=== PATIENT | female | born 1970 | race Caucasian/White ===

== ENCOUNTER → 2016-06-21 | Outpatient (CLI) | payer OTHER ==
--- NOTE | 2016-06-21 10:44 | REPMRS ---
Patient History The patient states she had a clinical breast exam [id number] Patient is postmenopausal. No known family history of cancer. Taking estrogen for 3 years. Digital Woman Screen Mammo: June 21, 2016 - Exam #: [id number] Bilateral CC and MLO view(s) were taken. Technologist: Heidi Sanchez, Technologist Prior study comparison: June 24, 2015, digital woman screen mammo performed at [facility] to [facility]. July 26, 2013, digital woman screen mammo performed at [facility] to [facility]. June 17, 2009, bilateral digital mammo screening bilat performed at [facility] to [facility]. FINDINGS: There are scattered fibroglandular densities. There has been no change in the appearance of the mammogram from the prior studies. There is a mild amount of scattered fibroglandular density which is fairly symmetric. There is no interval development of dominant mass, architectural distortion, or clustered microcalcification suggestive of malignancy. ASSESSMENT: BI-RADS/ACR category 1 mammogram. Negative. Recommendation Routine screening mammogram in 1 year (for women over age 40). This mammogram was interpreted with the aid of an FDA-approved computer-aided dectection system. Electronically Signed By: Germán Hollis MD 06/21/16 0851
== END ==
LOC: M WHC 06:50
PROVIDERS: ATTEND Nurse Practitioner Adult Health
DX: Z12.31 Encounter for screening mammogram for malignant neoplasm of breast (principal); Z78.0 Asymptomatic menopausal state; Z92.23 Personal history of estrogen therapy

== ENCOUNTER → 2016-06-27 | Outpatient (REF) | payer OTHER | LOC: M SFHCPLAZ 11:34 | PROVIDERS: ATTEND Nurse Practitioner Adult Health | DX: J02.8 Acute pharyngitis due to other specified organisms (principal) ==

== ENCOUNTER 2016-06-30 12:22 | Emergency (ER) | payer OTHER ==
[~2016-06-30] VITALS: Ht 157.5 cm; Wt 81.6 kg
[2016-06-30 13:29] LABS: BASO % 0.8 % (0.0-1.0); EOS # 0.1 K/mm3 (0.0-0.50); EOS % 1.5 % (0.0-3.0); LARGE UNSTAINED CELL # 0.1 K/mm3 (0.0-0.4); LARGE UNSTAINED CELL % 2.3 % (0.0-4.0); LYMPH # 1.7 K/mm3 (1.5-4.5); LYMPH % 31.4 % (24.0-44.0); MEAN CORPUSCULAR HEMOGLOBIN 32.3 pg (27.0-33.0); MEAN CORPUSCULAR HGB CONC 34.8 g/dl (32.0-36.5); MEAN CORPUSCULAR VOLUME 92.8 fl (80.0-96.0); MONO # 0.3 K/mm3 (0.0-0.8); MONO % 6.3 % (0.0-5.0); NEUTROPHILS # 3.1 K/mm3 (1.8-7.7); NEUTROPHILS % 57.7 % (36.0-66.0); PLATELET COUNT, AUTOMATED 305 k/mm3 (150-450); RED CELL DISTRIBUTION WIDTH 12.2 % (11.5-14.5); WHITE BLOOD COUNT 5.3 K/mm3 (4.0-10.0)
[2016-06-30] MEDS ORDERED: VIVE0.02 TD (13:36)
[2016-06-30] MEDS ORDERED: OSEL75CA PO (13:36)
[2016-06-30] MEDS ORDERED: SING10TA32 PO (13:36)
[2016-06-30] MEDS ORDERED: AMOX500C PO (13:36)
[2016-06-30] MEDS ORDERED: BENA25CA4 PO (13:36)
[2016-06-30] MEDS ORDERED: ALLE180T33 PO (13:36)
[2016-06-30] MEDS ORDERED: VITA200016 PO (13:36)
[2016-06-30 13:40] LABS: ABG BASE EXCESS 0.9 (-2.0-2.0); ABG HCO3 18.1 MEQ/L (22.0-26.0); ABG PARTIAL PRESSURE O2 155.8 mmHg (75.0-100.0); ABG STANDARD HCO3 25.4 MEQ/L (22.0-26.0); ABG TOTAL CO2 18.6 MEQ/L (22.0-29.0)
[2016-06-30 13:42] LABS: CONTROL LINE HCG INT CTR LINE PRESENT
[2016-06-30 13:44] LABS: ABG PARTIAL PRESSURE CO2 16.6 mmHg (35.0-45.0); ABG pH (ARTERIAL) 7.655 UNITS (7.350-7.450)
[2016-06-30 13:52] LABS: ALBUMIN 4.5 GM/DL (3.2-5.2); ALBUMIN/GLOBULIN RATIO 1.15 (1.00-1.93); ALKALINE PHOSPHATASE 80 U/L (45-117); ALT/SGPT 33 U/L (12-78); ANION GAP 17 MEQ/L (8-16); AST/SGOT 22 U/L (15-37); BILIRUBIN,DIRECT 0.1 MG/DL (0.0-0.2); BILIRUBIN,TOTAL 0.7 MG/DL (0.2-1.0); BLOOD UREA NITROGEN 14 MG/DL (7-18); CALCIUM LEVEL 9.8 MG/DL (8.5-10.1); CARBON DIOXIDE LEVEL 20 MEQ/L (21-32); CHLORIDE LEVEL 105 MEQ/L (98-107); CREATININE FOR GFR 1.09 MG/DL (0.55-1.02); GLOMERULAR FILTRATION RATE 58.1 (>58); GLUCOSE, FASTING 96 MG/DL (70-105); POTASSIUM SERUM 3.2 MEQ/L (3.5-5.1); SODIUM LEVEL 142 MEQ/L (136-145); TOTAL PROTEIN 8.4 GM/DL (6.4-8.2)
--- NOTE | 2016-06-30 13:59 | ECGEPIP ---
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
[2016-06-30] MEDS ORDERED: ISOVUE-370 76% 100ML VIAL (Q9967) As Ordered ONE (14:12)
--- NOTE | 2016-06-30 14:46 | REP ---
CHEST, PORTABLE: AP portable view of the chest is performed and compared to prior study of 04/08/2015. There is no acute infiltrate. There is mild bibasilar fibroatelectatic change. Heart and mediastinum are unremarkable in appearance. The visualized osseous structures appear intact. IMPRESSION: No acute pulmonary disease. Signed by Alfred Yoder MD 06/30/2016 04:44 P
--- NOTE | 2016-06-30 15:03 | REP ---
CT PULMONARY ANGIOGRAM: WITH IV CONTRAST. HISTORY: Shortness of breath. COMPARISON STUDIES: Comparison chest x-ray is from earlier this date. CONTRAST DOSE: 75 mL of Isovue-[address] TECHNIQUE: Helical scanning is acquired and overlapping 1.5 mm and contiguous 3 mm axial images are reformatted. In addition, a 3D work station is deployed to generate thick slab maximum intensity projection images in sagittal and coronal imaging projections. CT PULMONARY ANGIOGRAPHIC FINDINGS: There is good opacification of the pulmonary arterial tree. There is no CT evidence of pulmonary embolism. The thoracic aorta enhances homogeneously and is normal in course and caliber. 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 The right superior vena cava is seen and is patent and unremarkable as well. No pleural or pericardial effusion is seen. The lung monteiro are well inflated and clear. There is no evidence of hilar or mediastinal mass or adenopathy. Maximum intensity projection images show no evidence of vessel cutoff or filling defect to suggest a pulmonary arterial thrombus. The visualized upper abdominal structures are unremarkable. IMPRESSION: 1. No CT evidence of pulmonary embolus. 2. 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 3. Otherwise negative CT pulmonary angiogram. Signed by Yeyo Hollis MD 06/30/2016 04:27 P
[2016-06-30] MEDS: IPRATROPIUM 0.5MG/ALBUTEROL 2.5MG INH SOL UD 3ML (DUONEB)(J7620) NEB ONE (15:10)
[2016-06-30] MEDS: LORazepam 2 MG/ML VIAL (J2060) IV STA (15:19)
[2016-06-30 15:49] LABS: VENOUS O2 SATURATION 96.8 % (60.0-80.0); VENOUS PARTIAL PRESSURE CO2 34.4 mmHg (38.0-50.0); VENOUS PARTIAL PRESSURE O2 88.1 mmHg (30.0-50.0); VENOUS TOTAL CO2 21.9 MEQ/L (24.0-28.0)
[2016-06-30 17:21] VITALS: BP 115/69
== END 2016-06-30 17:22 | disposition home or self-care (01) ==
LOC: M ED 13:40
DX: R06.4 Hyperventilation (principal); Z79.899 Other long term (current) drug therapy
CPT/HCPCS: 36415; 36600; 71010; 71275; 80048; 80076; 82550; 82553; 82803; 83880; 84703; 85025; 87804; 87880; 93005; 93041; 94640; 96374; 99284; J2060; Q9967

== ENCOUNTER → 2016-06-30 | Outpatient (REF) | payer OTHER ==
[~2016-06-30] MED LIST: ALLE180T33 PO; AMOX500C PO; BENA25CA4 PO; OSEL75CA PO; SING10TA32 PO; VITA200016 PO; VIVE0.02 TD
[2016-06-30 12:52] LABS: MEAN CORPUSCULAR HGB CONC 35.4 g/dl (32.0-36.5); MEAN CORPUSCULAR VOLUME 93.1 fl (80.0-96.0); RED CELL DISTRIBUTION WIDTH 12.4 % (11.5-14.5); WHITE BLOOD COUNT 4.5 K/mm3 (4.0-10.0)
[2016-06-30 13:38] LABS: ALBUMIN 4.3 GM/DL (3.2-5.2); ALBUMIN/GLOBULIN RATIO 1.48 (1.00-1.93); ALKALINE PHOSPHATASE 76 U/L (45-117); ALT/SGPT 30 U/L (12-78); ANION GAP 12 MEQ/L (8-16); AST/SGOT 17 U/L (15-37); BILIRUBIN,TOTAL 0.6 MG/DL (0.2-1.0); BLOOD UREA NITROGEN 16 MG/DL (7-18); CALCIUM LEVEL 9.6 MG/DL (8.5-10.1); CARBON DIOXIDE LEVEL 25 MEQ/L (21-32); CHLORIDE LEVEL 104 MEQ/L (98-107); CREATININE FOR GFR 0.96 MG/DL (0.55-1.02); GLOMERULAR FILTRATION RATE > 60.0 (>58); GLUCOSE, FASTING 84 MG/DL (70-105); POTASSIUM SERUM 3.8 MEQ/L (3.5-5.1); SODIUM LEVEL 141 MEQ/L (136-145); TOTAL PROTEIN 7.2 GM/DL (6.4-8.2)
== END ==
LOC: M SFHCPLAZ 11:47
PROVIDERS: ATTEND Nurse Practitioner Adult Health
DX: R06.02 Shortness of breath (principal)

== ENCOUNTER → 2016-08-25 | Outpatient (REF) | payer OTHER | LOC: M SFHCPLAZ 13:09 | PROVIDERS: ATTEND Nurse Practitioner Adult Health | DX: E55.9 Vitamin D deficiency, unspecified (principal) ==

== ENCOUNTER → 2017-05-29 | Outpatient (REF) | payer BC ==
[2017-05-29 13:23] LABS: HEMATOCRIT 43.4 % (36.0-47.0); MEAN CORPUSCULAR HEMOGLOBIN 31.4 pg (27.0-33.0); MEAN CORPUSCULAR HGB CONC 34.6 g/dl (32.0-36.5); PLATELET COUNT, AUTOMATED 327 10^3/uL (150-450); RED BLOOD COUNT 4.77 10^6/uL (4.00-5.40); RED CELL DISTRIBUTION WIDTH 12.2 % (11.5-14.5); WHITE BLOOD COUNT 6.6 10^3/uL (4.0-10.0)
[2017-05-29 13:46] LABS: CONTROL LINE MONO INT CTR LINE PRESENT; MONO SCRN NEGATIVE (NEGATIVE)
[2017-05-29 13:47] LABS: ALBUMIN 3.8 GM/DL (3.2-5.2); ALBUMIN/GLOBULIN RATIO 1.12 (1.00-1.93); ALKALINE PHOSPHATASE 64 U/L (45-117); ALT/SGPT 62 U/L (12-78); ANION GAP 8 MEQ/L (8-16); AST/SGOT 15 U/L (7-37); BILIRUBIN,TOTAL 0.4 MG/DL (0.2-1.0); BLOOD UREA NITROGEN 24 MG/DL (7-18); CALCIUM LEVEL 8.7 MG/DL (8.5-10.1); CARBON DIOXIDE LEVEL 30 MEQ/L (21-32); CHLORIDE LEVEL 102 MEQ/L (98-107); CREATININE FOR GFR 0.81 MG/DL (0.55-1.30); GLOMERULAR FILTRATION RATE > 60.0 (>58); GLUCOSE, FASTING 81 MG/DL (70-100); POTASSIUM SERUM 3.3 MEQ/L (3.5-5.1); SODIUM LEVEL 140 MEQ/L (136-145); TOTAL PROTEIN 7.2 GM/DL (6.4-8.2)
[2017-05-31 00:06] LABS: EBV VIRAL CAPSID AG IgM <36.0 U/mL (0.0-35.9)
== END ==
LOC: M SFHCPLAZ 10:51
DX: R05 Cough (principal)
CPT/HCPCS: 84443

== ENCOUNTER → 2017-06-21 | Outpatient (CLI) | payer BC | LOC: M WHC 15:18 | DX: Z12.31 Encounter for screening mammogram for malignant neoplasm of breast (principal) | CPT/HCPCS: 77067 ==

== ENCOUNTER → 2017-08-09 | Outpatient (CLI) | payer BC ==
[~2017-08-09] MED LIST changes: -ALLE180T33 PO; -AMOX500C PO; -BENA25CA4 PO; +METHACHOLINE KIT (J7674) INH; -OSEL75CA PO; -SING10TA32 PO; -VITA200016 PO; -VIVE0.02 TD
== END ==
LOC: M CARPUL 13:27
DX: R06.89 Other abnormalities of breathing (principal)
CPT/HCPCS: J7674

== ENCOUNTER → 2018-02-16 | Outpatient (REF) | payer BC | LOC: M SFHCLERA 07:20 | DX: R35.0 Frequency of micturition (principal) ==

== ENCOUNTER → 2018-06-04 | Outpatient (CLI) | payer BC ==
[~2018-06-04] MED LIST changes: +ALLE180T33 PO; +AMOX500C PO; +BENA25CA4 PO; -METHACHOLINE KIT (J7674) INH; +OSEL75CA PO; +SING10TA32 PO; +VITA200016 PO; +VIVE0.02 TD
--- NOTE | 2018-06-04 10:46 | REP ---
Right knee five views : There is no fracture or dislocation. Mineralization and joint spaces are normal. There are no calcifications or foreign bodies. Impression: Negative right knee . Electronically Signed by Alfred Lopez MD 06/04/2018 10:38 A
== END ==
LOC: M CLY 08:11
PROVIDERS: ATTEND Family Medicine
DX: M25.561 Pain in right knee (principal)

== ENCOUNTER → 2018-06-04 | Outpatient (REF) | payer BC ==
[2018-06-04 11:42] LABS: ALBUMIN 3.6 GM/DL (3.2-5.2); ALT/SGPT 25 U/L (12-78); BILIRUBIN,TOTAL 0.3 MG/DL (0.2-1.0); BLOOD UREA NITROGEN 15 MG/DL (7-18); CALCIUM LEVEL 8.6 MG/DL (8.5-10.1); CARBON DIOXIDE LEVEL 29 MEQ/L (21-32); CHLORIDE LEVEL 105 MEQ/L (98-107); CHOLESTEROL LEVEL 226 MG/DL (<200); CHOLESTEROL RISK RATIO 3.183 (<5); GLOMERULAR FILTRATION RATE > 60.0 (>58); GLUCOSE, FASTING 101 MG/DL (70-100); HDL CHOLESTEROL 71 MG/DL (>40); LDL CHOLESTEROL 125 MG/DL (<100); NON-HDL-C 155 MG/DL; POTASSIUM SERUM 4.1 MEQ/L (3.5-5.1); SODIUM LEVEL 138 MEQ/L (136-145); TRIGLYCERIDES LEVEL 152 MG/DL (<150)
== END ==
LOC: M SFHCCLAY 07:59
PROVIDERS: ATTEND Family Medicine
DX: Z00.01 Encounter for general adult medical examination with abnormal findings (principal); Z13.1 Encounter for screening for diabetes mellitus; Z13.220 Encounter for screening for lipoid disorders; G43.009 Migraine without aura, not intractable, without status migrainosus; E55.9 Vitamin D deficiency, unspecified

== ENCOUNTER → 2018-06-05 | Outpatient (REF) | payer BC ==
[2018-06-05 17:05] LABS: HEMOGLOBIN A1c 5.5 %
== END ==
LOC: M SFHCCLAY 14:35
PROVIDERS: ATTEND Family Medicine
DX: R73.01 Impaired fasting glucose (principal)

== ENCOUNTER → 2018-06-08 | Outpatient (CLI) | payer BC ==
--- NOTE | 2018-06-08 13:47 | REPMRS ---
Patient History The patient states she had a clinical breast exam in 06/12 Patient is postmenopausal. No known family history of cancer. Taking estrogen for 5 years. 3D TOMOSYNTHESIS WAS PERFORMED. Digital Woman Screen Mammo: June 08, 2018 - Exam #: [id number] Bilateral CC and MLO view(s) were taken. Technologist: Ronit Cameron, Technologist Prior study comparison: June 21, 2017, digital woman screen mammo performed at [facility] [employer] to [facility]. June 21, 2016, digital woman screen mammo performed at [facility] to [facility]. FINDINGS: There are scattered fibroglandular densities. There has been no change in the appearance of the mammogram from the prior studies. There is a mild amount of residual fibroglandular tissue which is fairly symmetric. There is no interval development of dominant mass, architectural distortion, or clustered microcalcification suggestive of malignancy. Assessment: BI-RADS/ACR category 1 mammogram. Negative Mammogram. Recommendation Routine screening mammogram in 1 year (for women over age 40). This mammogram was interpreted with the aid of an FDA-approved computer-aided dectection system. Electronically Signed By: Alfred Yoder MD 06/08/18 [id number]
== END ==
LOC: M WHC 11:18
PROVIDERS: ATTEND Nurse Practitioner Women's Health
DX: Z12.31 Encounter for screening mammogram for malignant neoplasm of breast (principal); Z78.0 Asymptomatic menopausal state; Z92.23 Personal history of estrogen therapy

== ENCOUNTER → 2018-10-05 | Outpatient (CLI) | payer BC ==
[2018-10-05 17:17] LABS: FOLATE 15.3 NG/ML; FREE T4 0.92 NG/DL (0.76-1.46); RHEUMATOID FACTOR QUANT < 10.0 IU/ML (<15.0)
[2018-10-05 19:10] LABS: VITAMIN B12 LEVEL 543 PG/ML
[2018-10-10 14:47] LABS: ANTINUCLEAR ANTIBODIES DIRECT Negative (Negative); VITAMIN B1 LEVEL WHOLE BLOOD 126.3 nmol/L (66.5-200.0); VITAMIN E(ALPHA TOCOPHEROL) 10.2 mg/L (7.0-25.1); VITAMIN E(GAMMA TOCOPHEROL) 2.4 mg/L (0.5-5.5)
== END ==
LOC: M LRY 10:20
PROVIDERS: ATTEND Psychiatry & Neurology Neurology
DX: E07.9 Disorder of thyroid, unspecified (principal); R51 Headache; E51.8 Other manifestations of thiamine deficiency; R41.3 Other amnesia

== ENCOUNTER 2018-12-03 08:16 | Day surgery (SDC) | payer BC ==
[~2018-12-03] VITALS: Ht 157.5 cm; Wt 88.5 kg
[~2018-12-03 08:16] MED LIST changes: +EMGA120I IM; +LR 1,000 ML IV ONE; +ceFAZolin SOD 2 GM in IV 1 EA IV ONE
[2018-12-03] MEDS ORDERED: EPINEPHrine INJ 1 MG/ML 1ML VIAL ONE ×2 (08:17)
[2018-12-03] MEDS ORDERED: LIDOCAINE 1% MDV 20ML VIAL ONE ×2 (08:17)
[2018-12-03] MEDS ORDERED: BUPIVACAINE/EPIN 0.25% 30 ML VIAL ONE (08:17)
[2018-12-03] MEDS ORDERED: ROPIvacaine 0.5% 30 ML INJECTION (J2795 PER 1MG) ONE (08:17)
[2018-12-03] MEDS ORDERED: VENL1TAB35 PO (08:39)
[2018-12-03] MEDS ORDERED: MIDAZOLAM INJ 2 MG/2 ML VIAL (J2250) As Ordered ONE ×3 (08:54→13:57)
[2018-12-03] MEDS ORDERED: fentaNYL 100 MCG/2 ML INJECTION (J3010) As Ordered ONE ×2 (08:54→13:25)
[2018-12-03] MEDS: MIDAZOLAM INJ 2 MG/2 ML VIAL (J2250) IV PRN ×2 (09:06→09:07)
[2018-12-03] MEDS: fentaNYL 100 MCG/2 ML INJECTION (J3010) IV PRN ×6 (09:06→13:43)
[2018-12-03] MEDS ORDERED: BUPIVACAINE HCL 0.5% 30 ML VIAL As Ordered ONE (10:30)
[2018-12-03] MEDS ORDERED: MIDAZOLAM INJ 2 MG/2 ML VIAL (J2250) IV PRN (10:30)
[2018-12-03] MEDS ORDERED: fentaNYL 100 MCG/2 ML INJECTION (J3010) IV PRN (10:30)
[2018-12-03] MEDS ORDERED: EPINEPHrine 1MG/ML INJ 30ML MD-VIAL As Ordered ONE (10:32)
[2018-12-03] MEDS ORDERED: LIDOCAINE 1% MDV 20ML VIAL As Ordered ONE (10:32)
[2018-12-03] MEDS ORDERED: BUPIVACAINE HCL 0.25% 30 ML VIAL As Ordered ONE (11:01)
[2018-12-03] MEDS ORDERED: LIDOCAINE 2% INJ 100 MG/5 ML SDV (FOR ANES.) As Ordered ONE (11:27)
[2018-12-03] MEDS ORDERED: dexameTHASONE 4 MG/ML 1ML VIAL (J1100) As Ordered ONE (11:27)
[2018-12-03] MEDS ORDERED: ONDANSETRON 4MG/2ML VIAL (J2405) As Ordered ONE (11:27)
[2018-12-03] MEDS ORDERED: ACETAMINOPHEN 1000MG 100ML IV BTL (OFIRMEV) (J0131 PER 10MG) As Ordered ONE (11:27)
[2018-12-03] MEDS ORDERED: fentaNYL 250 MCG/5 ML INJECTION (J3010) As Ordered ONE (11:27)
[2018-12-03] MEDS ORDERED: ROCURONIUM BROMIDE 50 MG/5 ML VIAL As Ordered ONE (11:27)
[2018-12-03] MEDS ORDERED: propofoL 200 MG/20 ML VIAL As Ordered ONE (11:27)
[2018-12-03] MEDS ORDERED: SUGAMMADEX SODIUM 500 MG/5 ML VIAL (BRIDION) As Ordered ONE (12:46)
[2018-12-03] MEDS ORDERED: MORPHINE 10 MG/ML 1ML VIAL (J2270) As Ordered ONE ×2 (13:34→13:47)
[2018-12-03] MEDS ORDERED: KETOROLAC 30 MG/ML VIAL (J1885) As Ordered ONE (13:34)
[2018-12-03] MEDS: MORPHINE 10 MG/ML 1ML VIAL (J2270) IV PRN ×3 (13:49→13:59)
[2018-12-03] MEDS: MIDAZOLAM INJ 2 MG/2 ML VIAL (J2250) IV SCH ×2 (14:15→14:20)
[2018-12-03] MEDS ORDERED: ONDANSETRON 4MG/2ML VIAL (J2405) IV PRN (14:45)
[2018-12-03] MEDS ORDERED: PERCOCET 5MG/325MG TAB PO PRN (14:45)
[2018-12-03] MEDS ORDERED: METOCLOPRAMIDE INJ 10MG/2ML VIAL (J2765) IV PRN (14:45)
[2018-12-03] MEDS ORDERED: KETOROLAC 30 MG/ML VIAL (J1885) IV PRN (14:45)
[2018-12-03] MEDS ORDERED: LR 1,000 ML IV SCH ×2 (14:45→15:00)
[2018-12-03] MEDS ORDERED: MORPHINE 15 MG SA TAB PO ONE (15:00)
[2018-12-03] MEDS ORDERED: METOCLOPRAMIDE INJ 10MG/2ML VIAL (J2765) As Ordered ONE (15:56)
[2018-12-03 16:45] VITALS: BP 119/69
--- NOTE | 2018-12-04 10:19 | RO ---
DATE OF PROCEDURE: 12/03/2018 PREOPERATIVE DIAGNOSES: 1. Right shoulder partial thickness rotator cuff tear. 2. Right shoulder anterior labral tear. 3. Right shoulder impingement. 4. Right shoulder acromioclavicular (AC) joint arthritis. POSTOPERATIVE DIAGNOSES: 1. Right shoulder high-grade partial thickness rotator cuff tear. 2. Right shoulder impingement. 3. Right shoulder acromioclavicular joint arthritis. 4. Right shoulder degenerative labral tear. PROCEDURE: 1. Right shoulder examination under anesthesia. 2. Right shoulder arthroscopic rotator cuff repair. 3. Right shoulder arthroscopic labral debridement and subacromial decompression including acromioplasty. 4. Right shoulder arthroscopic distal clavicle excision. SURGEON: Dr. Ger Mcfarland PHYSICS TECHNICIAN: SRAVANTHI Jaffe ANESTHESIA: General with preoperative nerve block. IV FLUIDS: Lactated Ringer's. ESTIMATED BLOOD LOSS: 5 mL. IMPLANTS: Arthrex 4.75 mm Peak SwiveLock anchor times four. CLOSURE: Nylon. DESCRIPTION OF PROCEDURE: Patient identified in the preoperative holding area. The right shoulder marked by myself. She had interscalene nerve block by anesthesia. She was brought to the operating room, placed supine on a well-padded operating room (OR) table with a beanbag. General anesthesia was induced. Exam under anesthesia revealed 180 degrees forward flexion and adduction rotation and no increased anterior-posterior translation. She was then placed left side down lateral decubitus position with an axillary roll and all bony prominences well padded. Bilateral Venodyne boots for deep venous thrombosis (DVT) prophylaxis. The right shoulder was carefully placed into the Arthrex StaR sleeve lateral decubitus traction oakley with extra padding due to the patient having scarring from skin grafts. She was secured on the OR table with the beanbag. The right shoulder was then prepped and draped in normal sterile fashion. Prior to incision, time-out performed per hospital protocol. Kalia Faulkner was present for the entire procedure and participated in all essential portions of procedure. This included patient positioning and draping, holding the arthroscope, using the mallet and awl to create sockets for anchors, inserting anchors, cutting sutures arthroscopically in the wound closure. The right shoulder was insufflated with lactated Ringer's. A standard posterior viewing portal made with an 11-blade. 30 degree arthroscope introduced into the joint and diagnostic arthroscopy carried out. There was leading edge tearing of the anterior and posterior labrum. There was no tearing of the inferior labrum. The humeral head was centrally located on the glenoid from an anterior to posterior standpoint and was in the inferior one-third but certainly not subluxated. Long head of the biceps appeared pristine. Subscapularis was intact. The articular surface of the rotator cuff was in great condition. An anterior working portal was established through the rotator interval and on probing of the superior labrum there were no unstable labral tears. Purple cannula placed through the anterior portal. Scope placed through that cannula to give a direct view of the posterior and inferior labrum and again, no significant tearing noted, no instability. No indication for labral repair. A shaver was used to perform a labral debridement. The scope was placed into the subacromial space where there was moderate bursitis. A lateral working portal was established and a bursectomy performed with shaver and cautery. Moderate subacromial spur was encountered and a formal acromioplasty performed with the bur. Attention was then turned to the arthroscopic distal clavicle excision. There was [id number] contact of the AC joint and a bur was used to remove approximately 7-8 mm of the distal clavicle. The scope was intermittently placed in the anterior portal to ensure complete release. I then used a switching stick to palpate the bursal surface of the rotator cuff and there was felt to be a greater than 50% tear of the bursal surface of the supraspinatus. Given the patient's preoperative symptoms and inferior outcomes with debridement on these high-grade bursal tears, I elected to complete the tear and then proceed with an arthroscopic rotator cuff repair. Ring curette was used to clear soft tissue off the greater tuberosity to create a bleeding surface. Percutaneously placed two 4.75 mm Peak flow up anchors preloaded with tape just off the articular surface, one anterior and one posterior. Sutures were passed with the scorpion and then they were cut. A one limb from each medial anchor was brought to the lateral row, brought to the lateral cannula, placed through a 4.75 SwiveLock anchor. An awl was used to create a socket. The anchor was docked, sutures tensioned and then the anchor inserted by hand with excellent fixation. These steps were repeated with the last SwiveLock anchor to create the box and X configuration. Rotator cuff tissue was nicely compressed on the tuberosity. There were no dog ears. The shoulder was gently rotated. There was no lift off for buckling. The shoulder was irrigated and drained. Portals closed nylon suture. Injected 10 mL of 0.25% Marcaine without epinephrine at the anterior portal per anesthesia request. The patient was then placed into a sling immobilizer. At the time of dictation, the patient is brought to be extubated and transferred to postanesthesia care unit (PACU) in stable condition.
== END 2018-12-03 16:50 | disposition home or self-care (01) ==
LOC: M SDC 08:16
PROVIDERS: ATTEND Orthopaedic Surgery
DX: M75.111 Incomplete rotator cuff tear or rupture of right shoulder, not specified as traumatic (principal); M75.41 Impingement syndrome of right shoulder; M19.011 Primary osteoarthritis, right shoulder; M54.5 Low back pain; G43.919 Migraine, unspecified, intractable, without status migrainosus; F41.9 Anxiety disorder, unspecified; Z79.899 Other long term (current) drug therapy; Z88.8 Allergy status to other drugs, medicaments and biological substances
CPT/HCPCS: 29823; 29824; 29826; 29827; 64415; C1713; J0131; J0690; J1100; J1885; J2250; J2270; J2405; J2765; J2795; J3010

== ENCOUNTER 2019-01-14 10:15 | Outpatient (RCR) | payer BC ==
[~2019-01-14 10:15] MED LIST changes: -LR 1,000 ML IV ONE; +VENL1TAB35 PO; -ceFAZolin SOD 2 GM in IV 1 EA IV ONE
== END 2019-01-21 ==
LOC: M PT 10:15
PROVIDERS: ATTEND Orthopaedic Surgery
DX: Z47.89 Encounter for other orthopedic aftercare (principal)

== ENCOUNTER 2019-02-15 14:52 | Outpatient (RCR) | payer BC | END 2019-02-21 | LOC: M PT 14:52 | PROVIDERS: ATTEND Orthopaedic Surgery | DX: Z47.89 Encounter for other orthopedic aftercare (principal); M75.111 Incomplete rotator cuff tear or rupture of right shoulder, not specified as traumatic ==

== ENCOUNTER 2019-03-11 15:05 | Outpatient (RCR) | payer BC | END 2019-03-23 | LOC: M PT 15:05 | PROVIDERS: ATTEND Orthopaedic Surgery | DX: M25.511 Pain in right shoulder (principal) ==

== ENCOUNTER → 2019-03-28 | Outpatient (CLI) | payer BC ==
--- NOTE | 2019-03-28 13:29 | REP ---
Right upper extremity duplex Doppler venous ultrasound. Real time compression and duplex Doppler evaluation of the right upper extremity deep venous system is performed. The right subclavian, jugular, axillary, brachial, basilic and cephalic veins are fully compressible where accessible with transducer pressure, and demonstrate no intraluminal thrombus and normal venous waveforms. There is no evidence of deep venous thrombosis. Impression: No evidence of deep venous thrombosis of the right upper extremity deep vein system. Electronically Signed by Alfred Yoder MD 03/28/2019 01:20 P
== END ==
LOC: M RAD 11:45
PROVIDERS: ATTEND Orthopaedic Surgery
DX: M79.601 Pain in right arm (principal)

== ENCOUNTER → 2019-04-02 | Outpatient (CLI) | payer BC ==
[2019-04-02 07:43] LABS: BASO % 0.1 % (0.0-1.0); HEMATOCRIT 42.2 % (36.0-47.0); HEMOGLOBIN 14.2 g/dl (12.0-15.5); LYMPH # 0.8 10^3/uL (1.5-5.0); LYMPH % 8.9 % (24.0-44.0); MEAN CORPUSCULAR HEMOGLOBIN 32.1 pg (27.0-33.0); MEAN CORPUSCULAR HGB CONC 33.6 g/dl (32.0-36.5); MEAN CORPUSCULAR VOLUME 95.3 fl (80.0-96.0); MONO # 0.5 10^3/uL (0.0-0.8); MONO % 6.1 % (0.0-5.0); NEUTROPHILS # 7.2 10^3/uL (1.5-8.5); NEUTROPHILS % 83.4 % (36.0-66.0); PLATELET COUNT, AUTOMATED 328 10^3/uL (150-450); RED BLOOD COUNT 4.43 10^6/uL (4.00-5.40); WHITE BLOOD COUNT 8.7 10^3/uL (4.0-10.0)
[2019-04-02 08:10] LABS: ERYTHROCYTE SEDIMENTATION RATE 4 mm/hr (0-20)
== END ==
LOC: M LAB 06:44
PROVIDERS: ATTEND Orthopaedic Surgery
DX: Z47.89 Encounter for other orthopedic aftercare (principal)

== ENCOUNTER → 2019-04-21 | Outpatient (REF) | payer BC | LOC: M SFHCLERA 10:40 | PROVIDERS: ATTEND Physician Assistant | DX: J02.9 Acute pharyngitis, unspecified (principal) ==

== ENCOUNTER → 2019-04-23 | Outpatient (RCR) | payer BC | LOC: M PT 04-02 15:01 | PROVIDERS: ATTEND Orthopaedic Surgery | DX: M75.101 Unspecified rotator cuff tear or rupture of right shoulder, not specified as traumatic (principal) ==

== ENCOUNTER 2019-05-21 14:30 | Outpatient (RCR) | payer BC | END 2019-05-24 | LOC: M PT 14:30 | PROVIDERS: ATTEND Orthopaedic Surgery | DX: M25.511 Pain in right shoulder (principal) ==

== ENCOUNTER 2019-07-05 08:13 | Day surgery (SDC) | payer BC ==
[~2019-07-05] VITALS: Ht 157.5 cm; Wt 91.2 kg
[~2019-07-05 08:13] MED LIST changes: +BENA25TA5 PO; +IBUP200C25 PO; +LIDOCAINE 2% INJ 100 MG/5 ML SDV (FOR ANES.) As Ordered ONE; +LR 1,000 ML IV ONE; +ONDANSETRON 4MG/2ML VIAL (J2405) As Ordered ONE; +ROCURONIUM BROMIDE 50 MG/5 ML VIAL As Ordered ONE; +ceFAZolin SOD 2 GM in IV 1 EA IV ONE; +dexameTHASONE 4 MG/ML 1ML VIAL (J1100) As Ordered ONE; +propofoL 200 MG/20 ML VIAL As Ordered ONE
[2019-07-05] MEDS ORDERED: ROPIvacaine 0.5% 30 ML INJECTION (J2795 PER 1MG) ONE (08:14)
[2019-07-05] MEDS ORDERED: LIDOCAINE 1% MDV 20ML VIAL ONE (08:14)
[2019-07-05] MEDS ORDERED: dexameTHASONE 10 MG/1 ML VIAL PRES.FREE (J1100) ONE (08:14)
[2019-07-05] MEDS ORDERED: MIDAZOLAM INJ 2 MG/2 ML VIAL (J2250) As Ordered ONE (09:29)
[2019-07-05] MEDS ORDERED: fentaNYL 100 MCG/2 ML INJECTION (J3010) As Ordered ONE ×2 (09:29→10:11)
[2019-07-05] MEDS ORDERED: MIDAZOLAM INJ 2 MG/2 ML VIAL (J2250) IV ONE ×2 (10:15→10:30)
[2019-07-05] MEDS ORDERED: SUGAMMADEX SODIUM 500 MG/5 ML VIAL (BRIDION) As Ordered ONE ×2 (10:15→11:20)
[2019-07-05] MEDS ORDERED: fentaNYL 100 MCG/2 ML INJECTION (J3010) IV ONE (10:30)
[2019-07-05] MEDS ORDERED: EPINEPHrine 1MG/ML INJ 30ML MD-VIAL As Ordered ONE (10:38)
[2019-07-05] MEDS ORDERED: ACETAMINOPHEN 1000MG 100ML IV BTL (OFIRMEV) (J0131 PER 10MG) As Ordered ONE (11:11)
[2019-07-05] MEDS ORDERED: ePHEDrine SULFATE 25 MG/5 ML(5MG/ML) SYRINGE As Ordered ONE (11:31)
[2019-07-05] MEDS ORDERED: METOCLOPRAMIDE INJ 10MG/2ML VIAL (J2765) As Ordered ONE (12:46)
[2019-07-05] MEDS ORDERED: ONDANSETRON 4MG/2ML VIAL (J2405) As Ordered ONE (12:46)
[2019-07-05] MEDS ORDERED: oxyCODONE 5MG TAB PO PRN (13:00)
[2019-07-05] MEDS ORDERED: HYDROMORPHONE HCL 0.5 MG/ 0.5 ML SYRINGE (J1170 PER 1) IV PRN (13:00)
[2019-07-05] MEDS ORDERED: LR 1,000 ML IV SCH ×2 (13:00→14:01)
[2019-07-05] MEDS ORDERED: ONDANSETRON 4MG/2ML VIAL (J2405) IV PRN (13:00)
[2019-07-05] MEDS ORDERED: fentaNYL 100 MCG/2 ML INJECTION (J3010) IV PRN (13:00)
[2019-07-05] MEDS ORDERED: METOCLOPRAMIDE INJ 10MG/2ML VIAL (J2765) IV PRN (13:30)
[2019-07-05 13:45] VITALS: BP 123/67
--- NOTE | 2019-07-08 09:36 | RO ---
DATE OF SURGERY: 07/05/2019 PREOPERATIVE DIAGNOSIS: 1. Right shoulder rotator cuff tear (subscapularis). POSTOPERATIVE DIAGNOSES: 1. Right shoulder high-grade partial rotator cuff tear anterior supraspinatus. 2. Right shoulder biceps tendonitis. 3. Right shoulder impingement. 4. Right shoulder arthrofibrosis. PROCEDURE: 1. Right shoulder manipulation under anesthesia. 2. Right shoulder arthroscopic rotator cuff repair (anterior supraspinatus) Right shoulder arthroscopic biceps tenotomy. 3. Right shoulder arthroscopic rotator interval release and lysis of adhesions. 4. Right shoulder revision subacromial decompression including acromioplasty. SURGEON: Dr. Ger Mcfarland LAPIDARIST: SRAVANTHI Coronel ANESTHESIA: General, preoperative nerve block. IV FLUIDS: Lactated Ringer's. ESTIMATED BLOOD LOSS: 5 mL. IMPLANTS: Arthrex 4.75 mm Peak SwiveLock anchor times one. CLOSURE: Nylon. PROCEDURE: The patient was identified in the preoperative holding area. The right shoulder was marked by myself. She had an interscalene nerve block that worked great. She was brought to the operating room, placed supine on a well-padded operating room (OR) table with a beanbag. General anesthesia induced. Preliminary time-out performed per hospital protocol, and then I performed a manipulation under anesthesia. On my examination, she had 140 degrees of active forward flexion, 40 of external rotation with her arm at her side. I applied downward pressure on the scapula to stabilize the shoulder and then gentle steady forward flexion to the proximal humerus, felt two audible pops and then she had 170 degrees of forward flexion, 80 degrees of external rotation with arm at her side, 80 degrees of external rotation of the shoulder at 90. Next, the patient was placed into the left side down lateral decubitus position with an axillary roll and all bony prominences well padded. Bilateral Venodyne boots for deep venous thrombosis (DVT) prophylaxis. The right arm was placed into Arthrex StaR sleeve lateral decubitus traction oakley 10 pounds of traction. She was secured the OR table and then the right shoulder was prepped and draped in normal sterile fashion with Chloraprep. She received appropriate IV antibiotics within 1 hour of incision. Time-out performed again. Ramsey Saxena was present for the entire procedure and participated in all essential portions of the procedure. This included patient positioning and draping, holding the arthroscope, retrieving sutures, passing instruments and assisting with placing the anchor and performed the closure, applied the dressing and sling. The right shoulder was insufflated with lactated Ringer's. The previous posterior portal was opened with an 11-blade. A 30 degree arthroscope was introduced into the joint. There was no chondromalacia in the glenoid. There was extensive hyperemia and scar tissue in the rotator interval area. The teres minor was intact. The prior rotator cuff repair was inspected from the articular surface and it appeared to be intact. The rotator cable was appropriately positioned. Fiber and TigerTape sutures were visible. However, they were under appropriate tension and not lax, which is typically seen with three tears. An anterior working portal was established through the rotator interval. On probing the long head of biceps there was significant hyperemia, nd as discussed preoperatively, we performed a tenotomy with a meniscal biter release of the tendon just off the superior labrum. The labrum was debrided with a shaver. Next, the radiofrequency cautery was used to clear out the rotator interval. The biter was also used to release the upper half of the middle glenohumeral ligament to improve external rotation. Subscapularis was now clearly visible and it appeared pristine. Her preoperative physical exam was consistent with tearing of the subscapularis. However, there was absolutely no lift off doing the posterior lever push maneuver. I elected to create an accessory superolateral portal and through that I placed a switching stick and I again palpated the subscapularis. There was no lift off. No tendinopathy. I did perform a chondroplasty of the humeral head with a shaver. Overall, the humeral head was in great condition. There is a very thin flap of articular cartilage adjacent to the cuff footprint. Now the arthroscope was placed into the subacromial space and the prior rotator cuff repair site inspected. Through a lateral working portal I performed a bursectomy. I elected to use the bur to create a little more room for the rotator cuff. Removed about 2 mm more of the undersurface of the anterior acromion. An excellent view of the entire supraspinatus and infraspinatus and the prior repair site appeared to be intact. Of note, at the far anterior aspect of the supraspinatus no sutures were placed. There was some exposed greater tuberosity. I palpated that area with the switching stick. This was felt to be about two-thirds of partial bursal-sided tear. Palpating that with a switching stick I was not able to fully penetrate into the joint, so I marked that area with the spinal needle from the subacromial space, put the scope back in the joint and inspected that and this was consistent with the far anterior supraspinatus. The articular surface of the tendon there was intact but essentially a high-grade bursal-sided tear. Luckily I did not need to take down any of the prior SpeedBridge. The switching stick was used to penetrate and develop this into a full-thickness tear. Ring curette was also used to scrape soft tissue off the tuberosity to create a bleeding surface. I then used the Scorpion to pass FiberTape through the far anterior and middle portions of the tear. I then placed a FiberLink further posterior basically at the leading edge of the prior repair. Now those three limbs of suture were brought out through the lateral cannula loaded through 4.75 mm Peak SwiveLock anchor. A punch was used to create a socket in the anterior lateral greater tuberosity. [place] was docked, sutures tensioned. [place] inserted by hand with excellent fixation. This nicely completed the SpeedFix repair of the anterior supraspinatus. Arthroscope was placed in the lateral portal giving an excellent view again of the entire rotator cuff now from a different angle. The shoulder was gently internally and externally rotated. It moved nicely as a unit. Prior cuff repair looked fantastic. The shoulder was irrigated and drained. Portals closed with nylon suture. A bulky sterile dressing applied, then she was placed into the R-2 sling. She was extubated and transferred to the postanesthesia care unit (PACU) in stable condition.
== END 2019-07-05 14:07 | disposition home or self-care (01) ==
LOC: M SDC 08:13
PROVIDERS: ATTEND Orthopaedic Surgery
DX: M75.111 Incomplete rotator cuff tear or rupture of right shoulder, not specified as traumatic (principal); M75.21 Bicipital tendinitis, right shoulder; M75.41 Impingement syndrome of right shoulder; M24.611 Ankylosis, right shoulder; G43.909 Migraine, unspecified, not intractable, without status migrainosus; J45.909 Unspecified asthma, uncomplicated; F41.9 Anxiety disorder, unspecified; Z88.8 Allergy status to other drugs, medicaments and biological substances; Z79.899 Other long term (current) drug therapy
CPT/HCPCS: 29823; 29826; 29827; 64415; C1713; J0131; J0690; J1100; J2250; J2405; J2765; J2795; J3010

== ENCOUNTER → 2020-01-17 | Outpatient (CLI) | payer BC ==
[~2020-01-17] MED LIST changes: -LIDOCAINE 2% INJ 100 MG/5 ML SDV (FOR ANES.) As Ordered ONE; -LR 1,000 ML IV ONE; -ONDANSETRON 4MG/2ML VIAL (J2405) As Ordered ONE; -ROCURONIUM BROMIDE 50 MG/5 ML VIAL As Ordered ONE; -ceFAZolin SOD 2 GM in IV 1 EA IV ONE; -dexameTHASONE 4 MG/ML 1ML VIAL (J1100) As Ordered ONE; -propofoL 200 MG/20 ML VIAL As Ordered ONE
[2020-01-17 11:34] LABS: HEMATOCRIT 41.3 % (36.0-47.0); MEAN CORPUSCULAR HEMOGLOBIN 31.8 pg (27.0-33.0); MEAN CORPUSCULAR HGB CONC 33.9 g/dl (32.0-36.5); MEAN CORPUSCULAR VOLUME 93.9 fl (80.0-96.0); PLATELET COUNT, AUTOMATED 316 10^3/uL (150-450); WHITE BLOOD COUNT 3.7 10^3/uL (4.0-10.0)
[2020-01-17 12:14] LABS: ALT/SGPT 72 U/L (12-78); BILIRUBIN,TOTAL 0.5 MG/DL (0.2-1.0); BLOOD UREA NITROGEN 19 MG/DL (7-18); CALCIUM LEVEL 9.5 MG/DL (8.5-10.1); CARBON DIOXIDE LEVEL 24 MEQ/L (21-32); CHLORIDE LEVEL 106 MEQ/L (98-107); CREATININE FOR GFR 0.94 MG/DL (0.55-1.30); FREE T4 1.01 NG/DL (0.76-1.46); GLOMERULAR FILTRATION RATE > 60.0 (>58); GLUCOSE, FASTING 100 MG/DL (70-100); POTASSIUM SERUM 3.9 MEQ/L (3.5-5.1); RHEUMATOID FACTOR QUANT < 10.0 IU/ML (<15.0); SODIUM LEVEL 138 MEQ/L (136-145); TOTAL PROTEIN 7.3 GM/DL (6.4-8.2); URIC ACID 5.2 MG/DL (2.6-6.0)
[2020-01-17 12:52] LABS: ERYTHROCYTE SEDIMENTATION RATE 7 mm/hr (0-20)
[2020-01-21 02:07] LABS: ANTINUCLEAR ANTIBODIES DIRECT Negative (Negative); CYCLIC CITRULLINATED PEPTIDE 4 units (0-19); Lyme Disease IgG/IgM Antibodie <0.91 ISR (0.00-0.90); Lyme Disease IgM Ab Quantitati <0.80 index (0.00-0.79)
--- NOTE | 2020-01-23 08:35 | REPPI ---
BILATERAL HAND RADIOGRAPH CLINICAL: Bilateral hand pain TECHNIQUE: AP, lateral, bilateral oblique views of the right hand left hands FINDINGS: Osseous structures, joint spaces and surrounding soft tissues are symmetric and age appropriate. No overt osteoarthritic or inflammatory arthritic changes are appreciated. No periarticular erosive changes or loose bodies identified. No significant swelling. IMPRESSION: Symmetric age related changes. No overt arthritic findings. MTDD
== END ==
LOC: M PLALAB 08:15 → M PLAIMG 08:15
PROVIDERS: ATTEND Family Medicine
DX: M13.0 Polyarthritis, unspecified (principal); R53.83 Other fatigue

== ENCOUNTER → 2020-02-19 | Outpatient (REF) | payer BC | LOC: M SFHCPLAZ 13:25 | PROVIDERS: ATTEND Physician Assistant | DX: J06.9 Acute upper respiratory infection, unspecified (principal); Z20.828 Contact with and (suspected) exposure to other viral communicable diseases ==

== ENCOUNTER → 2020-09-01 | Outpatient (CLI) | payer BC ==
[~2020-09-01] MED LIST changes: +CYCL5TAB PO
--- NOTE | 2020-09-01 09:32 | REP ---
INDICATION: PAIN. COMPARISON: None. TECHNIQUE: Internal rotation, external rotation, axillary and Y-views of the right and left shoulder. FINDINGS: Right shoulder: There appears to be partial resection to the distal aspect of the right clavicle with small residual corticated fragment at the acromioclavicular (AC) joint. The subacromial space appears slightly decreased to approximately 7.5 mm. Subtle cortical irregularity at the inferior half of the glenoid rim is also suggested. No acute fracture or dislocation. Left shoulder: Left shoulder demonstrates very subtle inferior spur of the acromion process at the AC joint. The subacromial space appears normal. Very minimal cortical irregularity along the inferior half of the glenoid rim is suggested. The humeral head appears intact and normal. No acute fracture or dislocation. IMPRESSION: Bilateral changes as noted above. <Electronically signed by Bon Baxter > 09/01/20 0928
== END ==
LOC: M SOG 08:55
PROVIDERS: ATTEND Orthopaedic Surgery Sports Medicine
DX: M75.41 Impingement syndrome of right shoulder (principal); M75.42 Impingement syndrome of left shoulder

== ENCOUNTER → 2020-12-09 | Outpatient (CLI) | payer BC ==
[2020-12-09 13:22] LABS: BASO % 0.9 % (0.0-1.0); EOS % 0.9 % (0.0-3.0); HEMATOCRIT 43.2 % (36.0-47.0); HEMOGLOBIN 14.6 g/dl (12.0-15.5); LYMPH # 1.5 10^3/uL (1.5-5.0); LYMPH % 34.5 % (24.0-44.0); MEAN CORPUSCULAR HEMOGLOBIN 31.6 pg (27.0-33.0); MEAN CORPUSCULAR HGB CONC 33.8 g/dl (32.0-36.5); MEAN CORPUSCULAR VOLUME 93.5 fl (80.0-96.0); MONO # 0.4 10^3/uL (0.0-0.8); MONO % 9.2 % (2.0-8.0); NEUTROPHILS # 2.3 10^3/uL (1.5-8.5); NEUTROPHILS % 54.3 % (36.0-66.0); PLATELET COUNT, AUTOMATED 296 10^3/uL (150-450); RED BLOOD COUNT 4.62 10^6/uL (4.00-5.40); WHITE BLOOD COUNT 4.3 10^3/uL (4.0-10.0)
[2020-12-09 13:57] LABS: ALBUMIN 4.1 GM/DL (3.2-5.2); ALT/SGPT 38 U/L (12-78); BILIRUBIN,DIRECT 0.1 MG/DL (0.0-0.2); BILIRUBIN,TOTAL 0.7 MG/DL (0.2-1.0); BLOOD UREA NITROGEN 21 MG/DL (7-18); CREATININE FOR GFR 0.93 MG/DL (0.55-1.30); FERRITIN 29 NG/ML (8-252); FREE T4 1.01 NG/DL (0.76-1.46); GLOMERULAR FILTRATION RATE > 60.0 (>58); IRON (FE) 158 UG/DL (50-170); PERCENT SATURATION 44.4 % (13.2-45.0); TOTAL IRON BINDING CAPACITY 356 UG/DL (250-450); TOTAL PROTEIN 7.4 GM/DL (6.4-8.2)
== END ==
LOC: M LAB 11:40
PROVIDERS: ATTEND Internal Medicine Gastroenterology
DX: R63.4 Abnormal weight loss (principal)

== ENCOUNTER → 2020-12-09 | Outpatient (CLI) | payer BC ==
--- NOTE | 2020-12-09 20:47 | REP ---
INDICATION: COUGH/LABS 1ST, XRAY 2ND COMPARISON: 06/30/2016 TECHNIQUE: PA and lateral. FINDINGS: Mediastinum and cardiac silhouette are normal. Very subtle atelectasis at the left base is suggested and should be correlated clinically. Remainder of the lung monteiro are well aerated and clear. No effusion. No pneumothorax. Skeletal structures intact. IMPRESSION: Minimal atelectasis suggested at the left base. Correlation and follow-up is recommended. <Electronically signed by Bon Baxter > 12/09/20 [id number]
== END ==
LOC: M RAD 11:44
PROVIDERS: ATTEND Family Medicine
DX: R05 Cough (principal)

== ENCOUNTER → 2020-12-16 | Outpatient (CLI) | payer BC ==
[~2020-12-16] MED LIST changes: +ALBU8.5H; +PHEN15CA; +VENL-37
== END ==
LOC: M LABSMTC 11:18
PROVIDERS: ATTEND Anesthesiology
DX: Z01.818 Encounter for other preprocedural examination (principal); Z11.52 Encounter for screening for COVID-19

== ENCOUNTER 2020-12-18 11:56 | Day surgery (SDC) | payer BC ==
[~2020-12-18] VITALS: Ht 157.5 cm; Wt 79.4 kg
[~2020-12-18 11:56] MED LIST changes: +NS 1,000 ML IV ONE
[2020-12-18] MEDS ORDERED: LIDOCAINE 2% 100MG/5ML SDV (FOR ANES.) As Ordered ONE (13:33)
[2020-12-18] MEDS ORDERED: propofoL 200 MG/20 ML VIAL As Ordered ONE ×2 (13:33→13:56)
[2020-12-18] MEDS ORDERED: fentaNYL 100 MCG/2 ML INJECTION (J3010) As Ordered ONE (13:34)
--- NOTE | 2020-12-18 14:11 | ROOR ---
Patient Name: Syl Delgadillo Procedure Date: 12/18/2020 1:34 PM Date of : 1970 Age: 50 Room: [facility] Gender: Female Note Status: Finalized Procedure: Upper GI endoscopy Indications: Dyspepsia, Weight loss Providers: Linwood Mccurdy MD Referring MD: Keli GRUBBS DO Requesting Provider: Medicines: Monitored Anesthesia Care Complications: No immediate complications. Procedure: Pre-Anesthesia Assessment: - Prior to the procedure, a History and Physical was performed, and patient medications and allergies were reviewed. The patient is competent. The risks and benefits of the procedure and the sedation options and risks were discussed with the patient. All questions were answered and informed consent was obtained. Patient identification and proposed procedure were verified by the physician, the nurse and the anesthesiologist in the procedure room. Mental Status Examination: alert and oriented. Airway Examination: normal oropharyngeal airway and neck mobility. Respiratory Examination: clear to auscultation. CV Examination: normal. Prophylactic Antibiotics: The patient does not require prophylactic antibiotics. Prior Anticoagulants: The patient has taken no previous anticoagulant or antiplatelet agents. ASA Grade Assessment: II - A patient with mild systemic disease. After reviewing the risks and benefits, the patient was deemed in satisfactory condition to undergo the procedure. The anesthesia plan was to use monitored anesthesia care (MAC). Immediately prior to administration of medications, the patient was re-assessed for adequacy to receive sedatives. The heart rate, respiratory rate, oxygen saturations, blood pressure, adequacy of pulmonary ventilation, and response to care were monitored throughout the procedure. The physical status of the patient was re-assessed after the procedure. The Endoscope was introduced through the mouth, and advanced to the second part of duodenum. The upper GI endoscopy was accomplished without difficulty. The patient tolerated the procedure well. Findings: LA Grade A (one or more mucosal breaks less than 5 mm, not extending between tops of 2 mucosal folds) esophagitis with no bleeding was found in the distal esophagus. Biopsies were taken with a cold forceps for histology. Verification of patient identification for the specimen was done by the physician and nurse using the patient's name, date and medical record number. Estimated blood loss was minimal. Diffuse moderate inflammation characterized by congestion (edema), erythema, friability and granularity was found in the gastric body, in the gastric antrum and at the pylorus. Biopsies were taken with a cold forceps for Helicobacter pylori testing. The duodenal bulb and second portion of the duodenum were normal. Biopsies for histology were taken with a cold forceps for evaluation of celiac disease. Impression: - LA Grade A reflux esophagitis. Rule out Sweet's esophagus. Biopsied. - Gastritis. Biopsied. - Normal duodenal bulb and second portion of the duodenum. Biopsied. Recommendation: - Patient has a contact number available for emergencies. The signs and symptoms of potential delayed complications were discussed with the patient. Return to normal activities tomorrow. Written discharge instructions were provided to the patient. - High fiber diet. - Continue present medications. 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 - Await pathology results. - Telephone GI clinic for pathology results in 2 weeks. - Return to GI clinic if persistent symptoms or new symptoms. - Return to primary care physician. Procedure Code(s): --- Professional --- 46932, Esophagogastroduodenoscopy, flexible, transoral; with biopsy, single or multiple Diagnosis Code(s): --- Professional --- K21.0, Gastro-esophageal reflux disease with esophagitis K29.70, Gastritis, unspecified, without bleeding R10.13, Epigastric pain R63.4, Abnormal weight loss CPT copyright 2019 [employer]. All rights reserved. The codes documented in this report are preliminary and upon precision machine operator review may be revised to meet current compliance requirements. Linwood Mccurdy MD Linwood Mccurdy MD 12/18/2020 2:11:27 PM Electronically signed by Linwood Mccurdy MD Number of Addenda: 0 Note Initiated On: 12/18/2020 1:34 PM Estimated Blood Loss: Estimated blood loss was minimal.
--- NOTE | 2020-12-18 14:18 | ROOR ---
Patient Name: Syl Delgadillo Procedure Date: 12/18/2020 1:35 PM Date of : 1970 Age: 50 Room: [facility] Gender: Female Note Status: Finalized Procedure: Colonoscopy Indications: Screening for colorectal malignant neoplasm, Incidental - Weight loss Providers: Linwood Mccurdy MD Referring MD: Keli GRUBBS DO Requesting Provider: Medicines: Monitored Anesthesia Care Complications: No immediate complications. Procedure: Pre-Anesthesia Assessment: - Prior to the procedure, a History and Physical was performed, and patient medications and allergies were reviewed. The patient is competent. The risks and benefits of the procedure and the sedation options and risks were discussed with the patient. All questions were answered and informed consent was obtained. Patient identification and proposed procedure were verified by the physician, the nurse and the anesthesiologist in the procedure room. Mental Status Examination: alert and oriented. Airway Examination: normal oropharyngeal airway and neck mobility. Respiratory Examination: clear to auscultation. CV Examination: normal. Prophylactic Antibiotics: The patient does not require prophylactic antibiotics. Prior Anticoagulants: The patient has taken no previous anticoagulant or antiplatelet agents. ASA Grade Assessment: II - A patient with mild systemic disease. After reviewing the risks and benefits, the patient was deemed in satisfactory condition to undergo the procedure. The anesthesia plan was to use moderate sedation / analgesia (conscious sedation). Immediately prior to administration of medications, the patient was re-assessed for adequacy to receive sedatives. The heart rate, respiratory rate, oxygen saturations, blood pressure, adequacy of pulmonary ventilation, and response to care were monitored throughout the procedure. The physical status of the patient was re-assessed after the procedure. The Colonoscope was introduced through the anus and advanced to the terminal ileum, with identification of the appendiceal orifice and IC valve. The colonoscopy was performed without difficulty. The patient tolerated the procedure well. The quality of the bowel preparation was good. The terminal ileum, ileocecal valve, appendiceal orifice, and rectum were photographed. Scope insertion time was 2 minutes. Scope withdrawal time was 9 minutes. The total duration of the procedure was 12 minutes. Findings: The perianal and digital rectal examinations were normal. The terminal ileum appeared normal. Normal mucosa was found in the entire colon. Biopsies for histology were taken with a cold forceps from the right colon, left colon and rectosigmoid colon for evaluation of microscopic colitis. Verification of patient identification for the specimen was done by the physician and nurse using the patient's name, date and medical record number. Estimated blood loss was minimal. Non-bleeding external and internal hemorrhoids were found during retroflexion. The hemorrhoids were large. Impression: - The examined portion of the ileum was normal. - Normal mucosa in the entire examined colon. Biopsied. - Non-bleeding external and internal hemorrhoids. Recommendation: - Patient has a contact number available for emergencies. The signs and symptoms of potential delayed complications were discussed with the patient. Return to normal activities tomorrow. Written discharge instructions were provided to the patient. - High fiber diet. - Continue present medications. - Await pathology results. - Repeat colonoscopy in 3 - 5 years for surveillance based on pathology results. - Telephone GI clinic for pathology results in 2 weeks. - Return to GI clinic if persistent symptoms or new symptoms. - Return to primary care physician. Procedure Code(s): --- Professional --- 57488, Colonoscopy, flexible; with biopsy, single or multiple Diagnosis Code(s): --- Professional --- Z12.11, Encounter for screening for malignant neoplasm of colon K64.8, Other hemorrhoids CPT copyright 2019 [employer]. All rights reserved. The codes documented in this report are preliminary and upon marriage and family teacher review may be revised to meet current compliance requirements. Linwood Mccurdy MD Linwood Mccurdy MD 12/18/2020 2:17:28 PM Electronically signed by Linwood Mccurdy MD Number of Addenda: 0 Note Initiated On: 12/18/2020 1:35 PM Estimated Blood Loss: Estimated blood loss was minimal.
[2020-12-18 14:36] VITALS: BP 114/62
== END 2020-12-18 14:46 | disposition home or self-care (01) ==
LOC: M SDC 11:56 → M OPP 11:56 → M SDC 14:46
PROVIDERS: ATTEND Internal Medicine Gastroenterology
DX: Z12.11 Encounter for screening for malignant neoplasm of colon (principal); K64.8 Other hemorrhoids; K20.0 Eosinophilic esophagitis; K29.70 Gastritis, unspecified, without bleeding; R63.4 Abnormal weight loss; R10.13 Epigastric pain; Z79.899 Other long term (current) drug therapy; Z88.8 Allergy status to other drugs, medicaments and biological substances; Z91.048 Other nonmedicinal substance allergy status
CPT/HCPCS: 43239; 45380; 88305; J3010

== ENCOUNTER → 2021-05-21 | Outpatient (CLI) | payer BC ==
[~2021-05-21] MED LIST changes: -NS 1,000 ML IV ONE; -PHEN15CA; +PHEN15CA6
[2021-05-21 11:26] LABS: CALCIUM LEVEL 10.2 MG/DL (8.5-10.1); CREATININE FOR GFR 1.2 MG/DL (0.55-1.30); GLOMERULAR FILTRATION RATE 50.8 (>58); POTASSIUM SERUM 3.7 MEQ/L (3.5-5.1)
[2021-05-21 11:27] LABS: CHOLESTEROL RISK RATIO 3.031 (<5)
[2021-05-21 11:29] LABS: HEMOGLOBIN A1c 4.9 %
[2021-05-21 11:31] LABS: TOTAL 25(OH) VITAMIN D 25.1 NG/ML (30.0-100.0)
== END ==
LOC: M PLALAB 07:53
PROVIDERS: ATTEND Family Medicine
DX: Z00.00 Encounter for general adult medical examination without abnormal findings (principal); R73.01 Impaired fasting glucose; Z13.220 Encounter for screening for lipoid disorders; E55.9 Vitamin D deficiency, unspecified

== ENCOUNTER → 2021-06-16 | Outpatient (REF) | payer BC ==
[2021-06-16 16:24] LABS: BLOOD UREA NITROGEN 21 MG/DL (7-18); CALCIUM LEVEL 9.4 MG/DL (8.5-10.1); CARBON DIOXIDE LEVEL 31 MEQ/L (21-32); CHLORIDE LEVEL 99 MEQ/L (98-107); CREATININE FOR GFR 0.98 MG/DL (0.55-1.30); GLOMERULAR FILTRATION RATE > 60.0 (>58); GLUCOSE, FASTING 81 MG/DL (70-100); POTASSIUM SERUM 3.5 MEQ/L (3.5-5.1); SODIUM LEVEL 137 MEQ/L (136-145)
== END ==
LOC: M SFHCCLAY 13:30
PROVIDERS: ATTEND Family Medicine
DX: R94.4 Abnormal results of kidney function studies (principal)

== ENCOUNTER 2021-08-07 19:04 | Emergency (ER) | payer BC ==
[~2021-08-07] VITALS: Ht 157.5 cm; Wt 71.4 kg
[2021-08-07] MEDS ORDERED: PERCOCET 5MG/325MG TAB PO ONE (19:25)
[2021-08-07] MEDS ORDERED: KETOROLAC 30 MG/ML 1ML VIAL IV ONE (20:00)
[2021-08-07] MEDS ORDERED: MORPHINE 4 MG/ML 1ML VIAL/SYRINGE IV ONE (20:10)
[2021-08-07] MEDS ORDERED: KETAMINE HCL 200 MG/20 ML VIAL IV ONE ×3 (20:55→22:30)
[2021-08-07] MEDS ORDERED: NS 1,000 ML IV SCH (20:55)
[2021-08-07] MEDS: propofoL 200 MG/20 ML VIAL IV.PROC PRN ×3 (21:16→21:40)
[2021-08-07] MEDS ORDERED: propofoL 200 MG/20 ML VIAL IV ONE (22:05)
[2021-08-07] MEDS ORDERED: PERC5TAB12 PO (22:22)
[2021-08-07] MEDS ORDERED: OXYCODONE/APAP 5MG/325MG(BULK FOR ED) 1 TABLET PO ONE (22:25)
[2021-08-07 22:30] VITALS: BP 121/73
[2021-08-07 23:10] VITALS: O2SAT 98
== END 2021-08-07 23:20 | disposition home or self-care (01) ==
LOC: M ED 19:04
DX: S43.034A Inferior dislocation of right humerus, initial encounter (principal); V86.96XA Unspecified occupant of dirt bike or motor/cross bike injured in nontraffic accident, initial encounter; G43.909 Migraine, unspecified, not intractable, without status migrainosus; J45.909 Unspecified asthma, uncomplicated; Z79.899 Other long term (current) drug therapy
CPT/HCPCS: 23650; 73020; 73030; 73060; 93041; 94760; 96361; 96374; 96375; 99152; 99284; J2270

== ENCOUNTER → 2022-02-28 | Outpatient (REF) | payer BC ==
[~2022-02-28] MED LIST changes: +PERC5TAB12 PO
[2022-02-28 11:53] LABS: HEMATOCRIT 40.1 % (36.0-47.0); HEMOGLOBIN 13.6 g/dl (12.0-15.5); MEAN CORPUSCULAR HEMOGLOBIN 32.2 pg (27.0-33.0); MEAN CORPUSCULAR HGB CONC 33.9 g/dl (32.0-36.5); PLATELET COUNT, AUTOMATED 258 10^3/uL (150-450); RED BLOOD COUNT 4.22 10^6/uL (4.00-5.40); WHITE BLOOD COUNT 3.8 10^3/uL (4.0-10.0)
[2022-02-28 13:19] LABS: ALBUMIN 3.7 GM/DL (3.2-5.2); ALT/SGPT 22 U/L (12-78); BILIRUBIN,TOTAL 0.4 MG/DL (0.2-1.0); BLOOD UREA NITROGEN 15 MG/DL (7-18); CALCIUM LEVEL 8.9 MG/DL (8.5-10.1); CARBON DIOXIDE LEVEL 29 MEQ/L (21-32); CHLORIDE LEVEL 106 MEQ/L (98-107); CHOLESTEROL LEVEL 242 MG/DL (<200); CHOLESTEROL RISK RATIO 3.184 (<5); FREE T4 0.84 NG/DL (0.76-1.46); GLOMERULAR FILTRATION RATE > 60.0 (>51); GLUCOSE, FASTING 103 MG/DL (70-100); HDL CHOLESTEROL 76 MG/DL (>40); LDL CHOLESTEROL 142 MG/DL (<100); NON-HDL-C 166 MG/DL; POTASSIUM SERUM 4.3 MEQ/L (3.5-5.1); SODIUM LEVEL 140 MEQ/L (136-145); TOTAL PROTEIN 6.7 GM/DL (6.4-8.2); TRIGLYCERIDES LEVEL 119 MG/DL (<150)
[2022-02-28 14:04] LABS: TOTAL 25(OH) VITAMIN D 29.8 NG/ML (30.0-100.0)
== END ==
LOC: M SFHCCLAY 08:29
PROVIDERS: ATTEND Nurse Practitioner Family
DX: E78.5 Hyperlipidemia, unspecified (principal); R53.82 Chronic fatigue, unspecified; Z88.9 Allergy status to unspecified drugs, medicaments and biological substances; E55.9 Vitamin D deficiency, unspecified; L30.1 Dyshidrosis [pompholyx]; G43.009 Migraine without aura, not intractable, without status migrainosus; N95.2 Postmenopausal atrophic vaginitis

== ENCOUNTER → 2022-06-02 | Outpatient (CLI) | payer BC | LOC: M RAD 10:25 | PROVIDERS: ATTEND Internal Medicine Cardiovascular Disease | DX: M79.604 Pain in right leg (principal); M79.89 Other specified soft tissue disorders ==

== ENCOUNTER → 2022-06-28 | Outpatient (CLI) | payer BC ==
[~2022-06-28] MED LIST changes: +MONT-5 PO; -SING10TA32 PO
== END ==
LOC: M WHC 06:38
PROVIDERS: ATTEND Nurse Practitioner Family
DX: Z12.31 Encounter for screening mammogram for malignant neoplasm of breast (principal)

== ENCOUNTER → 2022-09-22 | Outpatient (CLI) | payer BC | LOC: M PLAIMG 14:18 | PROVIDERS: ATTEND Physician Assistant | DX: M25.571 Pain in right ankle and joints of right foot (principal) ==

== ENCOUNTER → 2022-12-15 | Outpatient (CLI) | payer BC | LOC: M PLAIMG 15:36 | PROVIDERS: ATTEND Nurse Practitioner Family | DX: M25.571 Pain in right ankle and joints of right foot (principal) ==

== ENCOUNTER → 2022-12-27 | Day surgery (SDC) | payer BC ==
[~2022-12-27] VITALS: Ht 157.5 cm; Wt 71.5 kg
[~2022-12-27] MED LIST changes: +ALBU8.5H INH; +DUPI300P SC; +HYDR-3363 PO; +LIDOCAINE 2% 100MG/5ML SDV (FOR ANES.) As Ordered ONE; +MYLA1SUS PO; +NS 1,000 ML IV ONE; +OMEP40CA5 PO; +ONDA-83 PO; +PHEN-239 PO; -VENL-37; +VENL-37 PO; +propofoL 200 MG/20 ML VIAL As Ordered ONE
[2022-12-27 08:30] VITALS: BP 116/71; TEMP 97.7; O2SAT 99
== END | disposition home or self-care (01) ==
LOC: M OPP 06:49
PROVIDERS: ATTEND Internal Medicine Gastroenterology
DX: K30 Functional dyspepsia (principal); K29.70 Gastritis, unspecified, without bleeding; K44.9 Diaphragmatic hernia without obstruction or gangrene; Z79.51 Long term (current) use of inhaled steroids; Z79.899 Other long term (current) drug therapy; Z88.7 Allergy status to serum and vaccine; Z88.8 Allergy status to other drugs, medicaments and biological substances; Z91.048 Other nonmedicinal substance allergy status

== ENCOUNTER 2023-02-23 11:43 | Emergency (ER) | payer BC ==
[~2023-02-23] VITALS: Ht 157.5 cm; Wt 70.8 kg
[~2023-02-23 11:43] MED LIST changes: -LIDOCAINE 2% 100MG/5ML SDV (FOR ANES.) As Ordered ONE; -NS 1,000 ML IV ONE; -propofoL 200 MG/20 ML VIAL As Ordered ONE
[2023-02-23] MEDS ORDERED: EXCETAB32 PO (11:52)
[2023-02-23] MEDS ORDERED: NS 1,000 ML IV ONE (12:55)
[2023-02-23] MEDS ORDERED: METOCLOPRAMIDE INJ 10MG/2ML VIAL IV ONE (12:55)
[2023-02-23 13:14] LABS: EOS # 0.1 10^3/uL (0.0-0.5); EOS % 1.9 % (0.0-3.0); HEMATOCRIT 39.6 % (36.0-47.0); HEMOGLOBIN 13.6 g/dl (12.0-15.5); LYMPH # 1.7 10^3/uL (1.5-5.0); LYMPH % 40.2 % (24.0-44.0); MEAN CORPUSCULAR HEMOGLOBIN 31.5 pg (27.0-33.0); MEAN CORPUSCULAR HGB CONC 34.3 g/dl (32.0-36.5); MEAN CORPUSCULAR VOLUME 91.7 fl (80.0-96.0); MONO # 0.3 10^3/uL (0.0-0.8); MONO % 7.7 % (2.0-8.0); PLATELET COUNT, AUTOMATED 273 10^3/uL (150-450); RED BLOOD COUNT 4.32 10^6/uL (4.00-5.40); WHITE BLOOD COUNT 4.1 10^3/uL (4.0-10.0)
[2023-02-23 13:38] LABS: BLOOD UREA NITROGEN 18 MG/DL (9-23); CALCIUM LEVEL 9.2 MG/DL (8.5-10.1); CARBON DIOXIDE LEVEL 27 MMOL/L (20-31); CHLORIDE LEVEL 106 MMOL/L (98-107); CREATININE FOR GFR 0.85 MG/DL (0.55-1.30); GLOMERULAR FILTRATION RATE > 60.0 (>51); GLUCOSE, FASTING 97 MG/DL (60-100); POTASSIUM SERUM 3.6 MMOL/L (3.5-5.1); SODIUM LEVEL 141 MMOL/L (136-145)
[2023-02-23] MEDS ORDERED: KETOROLAC 30 MG/ML 1ML VIAL IV ONE (13:55)
[2023-02-23 15:00] VITALS: BP 110/63; TEMP 97.6; O2SAT 97
[2023-02-23 15:24] LABS: ERYTHROCYTE SEDIMENTATION RATE 6 mm/hr (0-30)
== END 2023-02-23 15:02 | disposition home or self-care (01) ==
LOC: M ED 11:43
DX: G43.809 Other migraine, not intractable, without status migrainosus (principal); Z88.8 Allergy status to other drugs, medicaments and biological substances; Z91.048 Other nonmedicinal substance allergy status; Z79.899 Other long term (current) drug therapy
CPT/HCPCS: 70450; 80048; 85025; 85652; 96374; 96375; 99283; J1885; J2765

== ENCOUNTER → 2023-06-30 | Outpatient (REF) | payer BC ==
[~2023-06-30] MED LIST changes: +EXCETAB32 PO
[2023-06-30 12:13] LABS: ALBUMIN 3.9 G/DL (3.2-5.2); ALKALINE PHOSPHATASE 62 U/L (46-116); ALT/SGPT 14 U/L (7.0-40); AST/SGOT 10 U/L (<34); BILIRUBIN,TOTAL 0.5 MG/DL (0.3-1.2); BLOOD UREA NITROGEN 24 MG/DL (9-23); CALCIUM LEVEL 8.9 MG/DL (8.5-10.1); CARBON DIOXIDE LEVEL 29 MMOL/L (20-31); CHLORIDE LEVEL 106 MMOL/L (98-107); CHOLESTEROL LEVEL 200 MG/DL (<200); CHOLESTEROL RISK RATIO 2.76 (<5); CREATININE FOR GFR 0.72 MG/DL (0.55-1.30); GLOMERULAR FILTRATION RATE > 60.0 (>51); GLUCOSE, FASTING 86 MG/DL (60-100); HDL CHOLESTEROL 72.3 MG/DL (>40); LDL CHOLESTEROL 111.3 MG/DL (<100); NON-HDL-C 127.7 MG/DL; SODIUM LEVEL 138 MMOL/L (136-145); TOTAL PROTEIN 6.7 G/DL (5.7-8.2); TRIGLYCERIDES LEVEL 82 MG/DL (<150)
[2023-06-30 12:15] LABS: TOTAL 25(OH) VITAMIN D 21.1 NG/ML (20.0-100.0)
== END ==
LOC: M SFHCCLAY 08:37
PROVIDERS: ATTEND Nurse Practitioner Family
DX: E78.5 Hyperlipidemia, unspecified (principal); E55.9 Vitamin D deficiency, unspecified; L30.1 Dyshidrosis [pompholyx]; G43.009 Migraine without aura, not intractable, without status migrainosus; N95.2 Postmenopausal atrophic vaginitis; Z88.9 Allergy status to unspecified drugs, medicaments and biological substances